=== PATIENT | male | born 1945 | race Caucasian/White ===

== ENCOUNTER → 2016-09-04 | Day surgery (SDC) | payer BC ==
[~2016-09-04] MED LIST: BUPIVACAINE/EPINEPHRINE 0.5% PF 30 ML VIAL ONE; KETOROLAC TROMETHAMINE 30 MG/ML (IVP) VIAL IV PUSH ONE; LACTATED RINGER'S 1000 ML INJ 1,000 ML ONE; MIDAZOLAM HCL 2 MG/2 ML VIAL ONE; ONDANSETRON HCL 4 MG/2 ML VIAL IV PUSH ONE; PROPOFOL 200 MG/20 ML AMP IV ONE; ceFAZolin INJ 1,000 MG VIAL ONE
--- NOTE | 2016-09-04 15:56 | TN ---
cc: RITO FLOWER M.D. DATE OF SURGERY: 09/04/2016 PREOPERATIVE DIAGNOSIS 1. Internal derangement left knee. 2. Probable medial and lateral meniscus tear left knee. POSTOPERATIVE DIAGNOSIS 1. Complex tear posterior lateral meniscus. 2. Degenerative / complex tear posterior medial meniscus. PROCEDURE 1. Arthroscopy right knee. 2. Arthroscopic posterior medial meniscectomy. 3. Arthroscopic posterior lateral meniscectomy. SURGEON Rito Flower ANESTHESIA General. BLOOD LOSS Minimal. INDICATION This a 71 old male who sustained an injury to his left knee several months ago. He has been having catching, swelling and pain. Investigative studies initially showed evidence of a torn medial collateral ligament grade 1 but also evidence of a torn posterior medial and partial lateral meniscus. He presents for surgical treatment. PROCEDURE The patient brought to the operating room and anesthetized in the supine position. The left leg was scrubbed alcohol followed by Hibiclens followed Chloraprep and draped sterilely. Antibiotics were given within 1 hour time window a time-out was done. After exsanguination the tourniquet inflated to 250 mmHg. Inflow established anterior and laterally. The knee was inflated. The cameras introduced. The retropatellar surface was almost normal. There was no significant synovitis. No loose bodies were seen in the medial or lateral gutters. The medial compartment showed normal anterior portion but there was a complex tear at approximately 10 o'clock position extending to the posterior horn. Grade 1 changes of the medial femoral condyle, medial meniscus and the medial tibial plateau were noted. The ACL had a normal appearance to it. There no loose bodies in the notch. The lateral compartment showed minimal to grade 1 changes of the femur and tibia. There was some fraying anterior and laterally but there was a parrot beak type tear of the 11 o'clock position. Very close to the posterior horn. There was a horizontal cleavage tear that was extending around almost to the popliteal hiatus but did not go through to the rim. A spinal needle was introduced along introduced along medial joint line. A separate incision was made in the medial meniscus taken back to the 09:30 position of the posterior horn. The of the lateral meniscus was taken back to his posterior horn attachment and then debrided to just about the popliteal hiatus. Some fraying anteriorly was debrided with a meniscal debrider. All fragments floated free from the joint. The wound was irrigated copiously. Hemostasis was controlled. The portals were injected with 1/2 cm Marcaine with epinephrine and they were then closed with Steri-Strips and Benzoin. The patient was placed a sterile dressing awakened and taken to the Recovery Room in satisfactory condition. Rito MD QI Eddy/jasiel /2:09 PM /3:39 PM MTDAlex
== END | disposition home or self-care (01) ==
LOC: ESDC 11:18
PROVIDERS: ATTEND Orthopaedic Surgery Orthopaedic Surgery of the Spine
DX: S83.272A Complex tear of lateral meniscus, current injury, left knee, initial encounter (principal); S83.232A Complex tear of medial meniscus, current injury, left knee, initial encounter
CPT/HCPCS: 01400; 29880; J0690; J1885; J2250; J2405; J3010; J7120